=== PATIENT | male | born 1985 | race Two or more races ===

== ENCOUNTER 2020-03-11 08:35 | Emergency (ER) | payer OTHER ==
[~2020-03-11] VITALS: Ht 182.9 cm; Wt 72.6 kg
== END 2020-03-11 11:56 | disposition home or self-care (01) ==
LOC: ER 08:35
DX: S61.227A Laceration with foreign body of left little finger without damage to nail, initial encounter (principal); W26.8XXA Contact with other sharp object(s), not elsewhere classified, initial encounter; Y93.H2 Activity, gardening and landscaping; Y92.096 Garden or yard of other non-institutional residence as the place of occurrence of the external cause; Y99.8 Other external cause status